=== PATIENT | male | born 1995 | race Caucasian/White ===

== ENCOUNTER 2017-04-11 16:57 | Emergency (ER) | payer SELFPAY ==
[~2017-04-11] VITALS: Ht 188 cm; Wt 89.0 kg
[2017-04-11 16:59] VITALS: Ht 188 cm; Wt 89.0 kg
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
[2017-04-11] MEDS ORDERED: NO ROUTINE MEDS (17:16)
--- OUTSIDE RECORDS SUMMARY | 2017-04-11 17:18 | XMS REPORT | Continuity of Care Document ---
Author Author [facility] Address Unknown Phone Unavailable Allergies Active Description Code Type Severity Reaction Onset Reported/Identified Relationship to Patient Clinical Status Yes No Known Drug Allergies [id number] Drug Allergy Unknown N/ A 01/31/2014 Medications [...] Status Pt. Type Provider Facility Loc./Unit Complaint [id number] 01/31/2014 10:33:00 2013 11:55:00 DIS Emergency [facility] ALBERTA RAINEY [facility] ED HSB [id number] 11/23/2016 10:13:00 ACT Outpatient DL AVINA [facility]
[2017-04-11] MEDS ORDERED: NORMAL SALINE 500 ML IV ONE (17:30)
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
[2017-04-11 17:37] LABS: ANION GAP 13 MEQ/L (5-15); BUN/CREATININE RATIO 11 RATIO (6-26); CALCIUM 9.4 MG/DL (8.4-10.2); CHLORIDE 104 MEQ/L (98-107); CO2 - CARBON DIOXIDE 29 MEQ/L (22-30); CREATININE 1.1 MG/DL (0.8-1.5); GLOMERULAR FILTRATION RATE 83; GLUCOSE 89 MG/DL (75-110); POTASSIUM 3.4 MEQ/L (3.6-5); SODIUM 146 MEQ/L (134-144)
[2017-04-11] MEDS ORDERED: FENTANYL 100mcg/2ml INJECTION IV ONE (17:45)
[2017-04-11] MEDS ORDERED: IOHEXOL 300 MG/ML 100ml INJECTION ONE (17:45)
[2017-04-11] MEDS ORDERED: SALINE FLUSH 10ml SYRINGE ONE (17:45)
[2017-04-11] MEDS ORDERED: ONDANSETRON 4mg/2ml INJECTION IV ONE (17:45)
[2017-04-11] MEDS ORDERED: NORMAL SALINE 100 ML ONE (17:45)
[2017-04-11] MEDS ORDERED: KETOROLAC 30mg/ml INJECTION IV ONE (18:45)
[2017-04-11] MEDS ORDERED: HYDROMORPHONE 2mg/ml INJECTION IV ONE (18:45)
[2017-04-11 19:20] VITALS: BP 111/74; PULSE 85; RESP 18; TEMP 98.1; O2SAT 95
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
== END 2017-04-11 19:20 | disposition short-term general hospital (02) ==
LOC: ED 16:57
DX: S22.080A Wedge compression fracture of T11-T12 vertebra, initial encounter for closed fracture (principal); V28.0XXA Motorcycle driver injured in noncollision transport accident in nontraffic accident, initial encounter; Y93.89 Activity, other specified; Y92.89 Other specified places as the place of occurrence of the external cause; Y99.8 Other external cause status
CPT/HCPCS: 80048